=== PATIENT | female | born 2000 | race Caucasian/White ===

== ENCOUNTER 2020-09-19 13:40 | Outpatient (RCR) | payer OTHER, SELFPAY ==
[2020-01-14 13:44] VITALS: BMI 35.3
== END 2020-11-20 23:59 ==
LOC: IMMUN 13:40
PROVIDERS: PCP Pediatrics; Visit Provider Family Medicine
DX: Z23 Encounter for immunization (principal)
CPT/HCPCS: 0001A; 0002A; 91300

== ENCOUNTER → 2021-02-15 | Outpatient (CLI) | payer OTHER, SELFPAY | END | disposition home or self-care (01) | LOC: LABSPEC 16:43 | PROVIDERS: Visit Provider Physician Assistant Surgical | DX: R09.81 Nasal congestion (principal) | CPT/HCPCS: 87635; U0005; U0003 ==

== ENCOUNTER → 2021-04-01 | Outpatient (CLI) | payer OTHER, SELFPAY ==
[2021-04-04 03:07] LABS: Chlamydia By Nucleic Acid AMP Negative (Negative)
[2021-04-04 15:19] LABS: Gonococcus By Nucleic Acid AMP Negative (Negative)
[2021-04-05 13:35] LABS: HPV Reflexed? NOT INDICATED
== END | disposition home or self-care (01) ==
LOC: LABSPEC 04-02 08:53
PROVIDERS: Visit Provider Student in an Organized Health Care Education/Training Program
DX: Z12.4 Encounter for screening for malignant neoplasm of cervix (principal); Z11.3 Encounter for screening for infections with a predominantly sexual mode of transmission
CPT/HCPCS: 87491; 87591; 88175; G0145